=== PATIENT | male | born 1990 | race Two or more races ===

== ENCOUNTER 2016-11-02 15:28 | Emergency (ER) | payer OTHER ==
[~2016-11-02] VITALS: Ht 165.1 cm; Wt 74.8 kg
[2016-11-02 15:35] VITALS: BP 147/88
[2016-11-02] MEDS ORDERED: Tetanus/Diptheria/Pertussis Vaccine 0.5ml Syr IM ONE (15:45)
[2016-11-02] MEDS ORDERED: Lidocaine 1% Plain 30 ml INJ ONE (15:45)
--- NOTE | 2016-11-02 15:47 | Emergency Room Report ---
History of Present Illness General Chief Complaint: Laceration Source: Patient Present Illness HPI 26 YO Male presents to the ED c/o laceration to the back side of both his right index and middle finger x 1 hour. 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 pt. states he is left hand dominant. pt. denies taking blood thinning medications. pt. does not know when his last tetanus vaccination was. pt. reports continued bleeding at this time. pt. denies SI. Denies numbness tingling or loss of sensation or gross motor movements of the extremities, incontinence of bowel or bladder. Denies CP, Palpitations, LOC, AMS, dizziness, Changes in Vision, Sensation, paresthesias, or a sudden severe headache. Allergies: Coded Allergies: No Known Allergies (Unverified , 11/02/16) Patient History Past Medical History: see triage record Past Surgical History: none Pertinent Family History: none Immunizations: other - tetanus unknown Reviewed Nursing Documentation: PMH: Agreed, PSxH: Agreed Nursing Documentation-PMH Past Medical History: No Stated History Review of Systems All Other Systems: negative except mentioned in HPI Physical Exam Vital Signs Date Time Temp Pulse Resp B/P Pulse Ox O2 Delivery O2 Flow Rate FiO2 11/02/16 15:35 98.4 65 16 147/88 98 Room Air Sp02 EP Interpretation: reviewed, normal General Appearance: no apparent distress, alert, GCS 15, non-toxic Head: normocephalic, atraumatic Eyes: bilateral eye PERRL, bilateral eye normal inspection ENT: hearing grossly normal, normal voice Neck: full range of motion Respiratory: lungs clear, normal breath sounds, speaking full sentences Cardiovascular #1: regular rate, rhythm Musculoskeletal: back normal, gait/station normal, normal range of motion, non- tender Neurologic: alert, oriented x3, responsive, motor strength/tone normal, sensory intact, speech normal Psychiatric: judgement/insight normal, memory normal, mood/affect normal, no suicidal/homicidal ideation Skin: normal color, no rash, warm/dry, well hydrated, laceration - Avulsion laceration of the right index finger approx 2 cm in length, in addition to Avulsion laceration of the right middle finger which is also approx 2 cm in length Lymphatic: no adenopathy Medical Decision Making PA Attestation Dr. Hsu is my supervising Physician whom patient management has been discussed with. Diagnostic Impression: Primary Impression: Laceration ER Course 26 YO Male presents to the ED c/o laceration to the back side of both his right index and middle finger x 1 hour. 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 pt. states he is left hand dominant. pt. denies taking blood thinning medications. pt. does not know when his last tetanus vaccination was. pt. reports continued bleeding at this time. pt. denies SI. Denies numbness tingling or loss of sensation or gross motor movements of the extremities, incontinence of bowel or bladder. Denies CP, Palpitations, LOC, AMS, dizziness, Changes in Vision, Sensation, paresthesias, or a sudden severe headache. Ddx considered but are not limited to laceration, tendon injury, cellulitis, amputation Vital signs: are WNL, pt. is afebrile H&PE are most consistent with: Avulsion laceration of the right index finger approx 2 cm in length, in addition to Avulsion laceration of the right middle finger which is also approx 2 cm in length - no evidence of secondary infection. ORDERS: none required at this time, the diagnosis is clinical ED INTERVENTIONS: -Tetanus vaccine was administered as pt. vaccination status was unknown. - The wound was copiously irrigated with normal saline, and explored for foreign body for which no FB was found. - Verbal consent was obtained by pt. for local anesthesia and electric cautery of the 2nd and 3rd right digits. - pt. is anesthetized with 1%lidocaine plain using digital block technique for fingers 2 and 3 of the right hand. - electric Cautery is utilized to subside bleeding to the dorsum of both the 2nd and 3rd digits. pt. tolerate well, there was no complications. -Xeroform gauze and sterile dressing is applied. - Finger Splint applied to the Right index finger by natural resource technician. Pt. remains neurovascularly intact. - Finger Splint also applied to the Right middle finger by natural resource technician. Pt. remains neurovascularly intact. Discussed with patient: That we make every effort to approximate the laceration as best as we can so that scarring will be as cosmetically pleasing as possible with our limited cosmetic skill set in the Emergency dept. Regardless of our best efforts there will be scarring after laceration repair. The extent of scarring is unknown at this time. d/w pt. that healing will be by secondary intent. d/w pt. not to remove the dressing for three days, to keep hand clean and dry. d/w pt. that he will be rx' c abx ointment to apply after the third day. d/w pt. proper follow up . d/w pt. to return to the ED with worsening or new symptoms. DISCHARGE: At this time pt. is stable for d/c to home. Will provide printed patient care instructions, and any necessary prescriptions. Care plan and follow up instructions have been discussed with the patient prior to discharge. Last Vital Signs Date Time Temp Pulse Resp B/P Pulse Ox O2 Delivery O2 Flow Rate FiO2 11/02/16 15:35 98.4 62 16 147/88 98 Room Air Disposition: HOME, SELF-CARE Condition: Stable Scripts Bacitracin/Polymyxin B Sulfate (BACITRACIN-POLYMYXIN OINTMENT) 28.35 Gm Oint...g. 1 APPLIC TP BID, #28.3 GM Prov: Savannah Murillo 11/02/16 Departure Forms: Return to Work Return to Work Date: Nov 03, 2016 Work Restrictions: No Heavy Lifting Other Restrictions: wear finger splint. limited use of right hand. keep clean/ dry. Return to Full Activity: Nov 11, 2016 Patient Instructions: Nonsutured Laceration Care Additional Instructions: Take medications as directed. Follow up with a Primary Care Provider in 3-5 days, even if your symptoms have resolved. --Please review list of primary care clinics, if you do not already have a primary care provider Return sooner to ED if new symptoms occur, or current symptoms become worse. - Please note that this Emergency Department Report was dictated using [employer] card cutter technology software, occasionally this can lead to erroneous entry secondary to interpretation by the dictation equipment. Savannah Murillo Nov 02, 2016 15:47
[2016-11-02] MEDS ORDERED: BACITRACIN-P28.35 GM TP (17:16)
[2016-11-02 17:27] VITALS: BP 147/88
== END 2016-11-02 17:27 | disposition home or self-care (01) ==
LOC: EMR 17:10
DX: S61.210A Laceration without foreign body of right index finger without damage to nail, initial encounter (principal); S61.212A Laceration without foreign body of right middle finger without damage to nail, initial encounter; W45.8XXA Other foreign body or object entering through skin, initial encounter; Y93.9 Activity, unspecified; Y99.0 Civilian activity done for income or pay; Z23 Encounter for immunization
CPT/HCPCS: 29130; 90471; 90715; 96372; 99284; J2001